=== PATIENT | male | born 1950 | race Caucasian/White ===

== ENCOUNTER 2019-07-18 06:56 | Emergency (ER) | payer MEDICARE, BC ==
[2019-07-18] MEDS ORDERED: BABY ASPIRIN 81 MG CHEW PO ONE (07:12)
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
[2019-07-18] MEDS ORDERED: Cardizem IV 50 MG/10 ML IV ONE ×2 (07:13→07:16)
[2019-07-18] MEDS ORDERED: Sodium Chloride 0.9% 1000 ML 1,000 ML IV SCH (07:15)
[2019-07-18] MEDS ORDERED: Sodium Chloride 0.9% 1000 ML 1,000 ML ONE ×2 (07:17→08:25)
[2019-07-18] MEDS ORDERED: CARDIZEM DRIP 100 MG/100 ML D5W 100 ML IV PRN (07:39)
[2019-07-18 07:40] LABS: Absolute Neutrophil Ct (ANC) 10.06 (1.4-6.9); BASOPHIL % 0.2 % (0.0-0.4); Basophil (Absolute #) 0.02 (0-0.4); Eosinophil % 0.2 % (0.00-5.0); Eosinophil (Absolute #) 0.03 (0-0.5); Hemoglobin 15.7 gm/dl (12.5-18.0); Lymphocyte (Absolute #) 0.99 (1.0-4.6); Mean Corpuscular Hemoglobin 29.4 pg (26-32); Mean Corpuscular Hgb Concent. 33.4 g/dl (32-36); Mean Platelet Volume 11.9 fl (6-9.5); Monocyte (Absolute #) 1.29 (0.0-1.3); Monocytes % 10.4 % (0.0-12.0); Neutrophil % 81.2 % (36.0-66.0); Platelet Count 155 K/mm3 (150-450); Red Blood Count 5.34 M/mm3 (4.1-5.6); Red Cell Distribution Width 14.5 % (11.5-14.0); White Blood Count 12.4 K/mm3 (4.0-10.5)
[2019-07-18 08:21] LABS: ALBUMIN 3.8 g/dL (3.5-5.0); ALKALINE PHOSPHATASE 88 U/L (38-126); ANION GAP 14.1 MEQ/L (5-15); BLOOD UREA NITROGEN 20 mg/dL (9-20); CHLORIDE 104 mmol/L (98-107); Calcium 9.1 mg/dL (8.4-10.2); Carbon Dioxide 27 mmol/L (22-30); Creatinine 1 1.21 mg/dL (0.66-1.25); Glucose 121 mg/dL (74-106); NT PRO BNP 916 pg/mL (0-900); SGOT/AST 39 U/L (17-59); SGPT/ALT 18 U/L (0-50); SODIUM 142 mmol/L (137-145); T4 (Thyroxine) 6.07 ug/dL (5.53-10.96); TROPONIN 0.023 ng/mL (0.000-0.034); Total Protein 7.3 g/dL (6.3-8.2)
[2019-07-18] MEDS ORDERED: Sodium Chloride 0.9% 1000 ML 1,000 ML IV STA (08:24)
[2019-07-18 08:33] LABS: Potassium 2.6 mmol/L (3.5-5.1)
[2019-07-18] MEDS ORDERED: POTASSIUM CHLORIDE 20 mEq IN WATER 100ML 100 ML IV ONE (08:42)
[2019-07-18] MEDS ORDERED: POTASSIUM CHLORIDE 20 mEq IN WATER 100ML 20 MEQ/100 ML BAG IV SCH (08:45)
--- NOTE | 2019-07-18 09:18 | XRAY ---
Indication: Chest pain. Elevated d-dimer. Atrial fibrillation. Multiple contiguous axial images obtained through the chest using 80 cc Isovue 370 contrast and PE protocol. Comparison: None There is good opacification of the pulmonary arteries to include the lobar and segmental branches. However mild respiration artifact limits evaluation of the more distal lobar and segmental branches. No central pulmonary embolus. Heart is not enlarged. Aorta is normal in course and caliber without aneurysm/dissection. Tiny right hilar and subcarinal calcified nodes. No pathologic mediastinal/hilar lymphadenopathy. Small hiatal hernia. Examination of the lung parenchyma demonstrates minimal bilateral dependent atelectasis and minimal bibasilar fibrosis/scarring. Small right upper lobe calcified granuloma. 7 mm left lower lobe and 3 mm right middle lobe noncalcified nodules, possibly granulomatous. No infiltrate or effusion. Bony thorax demonstrates flowing osteophytes throughout the spine and remote-appearing T11 compression deformity with approximately 50% height loss. Limited upper abdomen demonstrates abnormally distended with 3.3 cm gallbladder neck stone, wall thickening, and pericholecystic fluid worrisome for cholecystitis. Also 2 right lobe hepatic cysts, largest 3 cm. Impression: 1. Pulmonary embolus evaluation limited by respiration artifact. No large central pulmonary embolus. 2. Right middle and left lower lobe noncalcified micronodules possibly granulomatous as there is evidence for old granulomatous disease elsewhere. Comparison studies would be of benefit if performed elsewhere. Otherwise recommend follow-up per Fleischner guidelines. 3. Abnormal gallbladder distention with large gallstone, wall thickening, and pericholecystic fluid favoring acute cholecystitis. 4. Incidental hepatic cysts. CT DI 22.01
--- NOTE | 2019-07-18 09:18 | XRAY ---
Indication: Chest pain. Atrial fibrillation. Comparison: October 04, 2015. Portable chest demonstrates tiny right apical calcified granuloma. Remaining heart and lungs unremarkable. Small hiatal hernia suggested. Bony thorax intact again with mild degenerative changes. Impression: Nonacute chest with chronic features.
[2019-07-18 09:19] VITALS: BP 117/77; PULSE 97; O2SAT 99
[2019-07-18 09:31] LABS: Appearance SLIGHTLY CLOUDY (CLEAR); Bilirubin NEGATIVE (NEGATIVE); Blood SMALL Ery/ul (0-5); Glucose NEGATIVE (NEGATIVE); Ketones SMALL (NEGATIVE); Leukocyte Esterase NEGATIVE (NEGATIVE); Mucus SLIGHT /HPF (NEGATIVE); Nitrite NEGATIVE (NEGATIVE); Protein,Urine Dip 30 (Negative); Specific Gravity >1.060 (1.005-1.025); Urobilinogen 2 mg/dL (0-1)
[2019-07-18] MEDS ORDERED: ROCEPHIN 1 Gm-D5w 50 ml Bag** 1 G/50 ML IVPB IV STA (09:32)
[2019-07-18] MEDS ORDERED: ROCEPHIN 1 Gm-D5w 50 ml Bag** 1 G/50 ML IVPB IV ONE (09:40)
[2019-07-18 09:47] LABS: Amphetamine,Urine NEGATIVE (NEGATIVE); Barbiturate,Urine NEGATIVE (NEGATIVE); Benzodiazepine,Urine NEGATIVE (NEGATIVE); Cocaine,Urine NEGATIVE (NEGATIVE); Methadone,Urine NEGATIVE (NEGATIVE); Opiate,Urine NEGATIVE (NEGATIVE); PCP,Urine NEGATIVE (NEGATIVE); THC,Urine NEGATIVE (NEGATIVE)
== END 2019-07-18 10:18 | disposition short-term general hospital (02) ==
LOC: ED 06:56
DX: I48.91 Unspecified atrial fibrillation (principal); K81.0 Acute cholecystitis; E87.6 Hypokalemia; Z79.899 Other long term (current) drug therapy
CPT/HCPCS: 36000; 36415; 71045; 71260; 80053; 80307; 81001; 82962; 83605; 83880; 84436; 84443; 84481; 84484; 85025; 85379; 87086; 93005; 93041; 94760; 96360; 96361; 96365; 96367; 96374; 99285; 99291; J0696; J3480; A9270-GY